=== PATIENT | male | born 1995 | race American Indian/Alaskan Native ===

== ENCOUNTER 2020-09-09 22:01 | Emergency (ER) | payer SELFPAY ==
[2020-09-09] MEDS ORDERED: IPRATROPIUM 0.02% NEBU 2.5 ML IH ONE (22:57)
[2020-09-09] MEDS ORDERED: dexAMETHasone 20 MG/5 ML VIAL IV ONE (22:57)
[2020-09-09] MEDS ORDERED: ALBUTEROL 2.5 MG/3 ML NEBU IH ONE ×2 (22:57→23:22)
[2020-09-09] MEDS ORDERED: dexAMETHasone 20 MG/5 ML VIAL IM ONE (23:01)
--- NOTE | 2020-09-09 23:10 | Emergency Department Report ---
<ZAK BILLINGS - Last Filed: 09/09/20 23:24> ED Shortness of Breath HPI - General Chief Complaint: Dyspnea/Respdistress Stated Complaint: ASTHMA - Related Data Previous Rx's Medication Instructions Recorded Last Taken Type ALBUTEROL NEB's [Proventil 0.083% 2.5 mg IH QID PRN #1 box 09/10/20 Unknown Rx NEBS] Albuterol Mdi (or & Nicu Only) 2 puff IH QID PRN #8.5 gram 09/10/20 Unknown Rx [ProAir HFA Inhaler] predniSONE [Deltasone] 40 mg PO QDAY 5 Days #10 tab 09/10/20 Unknown Rx Allergies Allergy/AdvReac Type Severity Reaction Status Date / Time No Known Allergies Allergy Verified 09/09/20 22:57 ED Past Medical Hx - Medications Home Medications: Home Medications Medication Instructions Recorded Confirmed Last Taken Type ALBUTEROL NEB's [Proventil 0.083% 2.5 mg IH QID PRN #1 box 09/10/20 Unknown Rx NEBS] Albuterol Mdi (or & Nicu Only) 2 puff IH QID PRN #8.5 gram 09/10/20 Unknown Rx [ProAir HFA Inhaler] predniSONE [Deltasone] 40 mg PO QDAY 5 Days #10 tab 09/10/20 Unknown Rx ED Medical Decision Making - Medical Decision Making I evaluated patient. I agree with treatment plan. Patient continues to have inspiratory expiratory wheezes. He also has mild work of breathing. I have ordered second continuous nebulizer therapy. ED Disposition Clinical Impression: Shortness of breath Asthma attack Qualifiers: Asthma severity: moderate Asthma persistence: unspecified Qualified Code(s): J45.901 - Unspecified asthma with (acute) exacerbation Disposition: DC- TO HOME OR SELFCARE Condition: Stable Instructions: Asthma, Adult, [id number] Additional Instructions: Please complete your prednisone as prescribed. Use your nebulizer albuterol or inhaler every 4-6 hours as needed for wheezing or shortness of breath or cough. Is very important for you to increase your fluid intake. Follow-up with your primary care provider in the next 3 to 5 days. Prescriptions: predniSONE [Deltasone] 40 mg PO QDAY 5 Days #10 tab Albuterol Mdi (or & Nicu Only) [ProAir HFA Inhaler] 2 puff IH QID PRN #8.5 gram PRN Reason: Shortness Of Breath ALBUTEROL NEB's [Proventil 0.083% NEBS] 2.5 mg IH QID PRN #1 box PRN Reason: Wheezing Referrals: [facility] [place] [Provider Group] - 3-5 Days Forms: Work/School Release Form(ED) <DANY BALBUENA - Last Filed: 09/10/20 00:21> ED Shortness of Breath HPI - General Source: patient Mode of arrival: Ambulatory Limitations: No Limitations - History of Present Illness Initial Comments: 24-year-old -Citizen Of [place] male presents to the emergency room for 1 day history of shortness of breath and wheezing. Patient states that he has asthma. He reports he has been using his nebulizer with no relief. Patient denies any fever or chills. Denies any nausea vomiting or chest pain. Reports chest tightness. Patient reports he has been hospitalized for his asthma as well as been intubated in the past. MD Complaint: shortness of breath Onset/Timin -: days(s) ED Review of Systems ROS: Stated complaint: ASTHMA Other details as noted in HPI Comment: All other systems reviewed and negative ED Past Medical Hx - Past Medical History Previous Medical History?: Yes Hx Asthma: Yes - Surgical History Past Surgical History?: No - Social History Smoking Status: Never Smoker Substance Use Type: None ED Physical Exam - General Limitations: No Limitations General appearance: alert, in no apparent distress, in distress - Head Head exam: Present: atraumatic, normocephalic - Eye Eye exam: Present: normal appearance - ENT ENT exam: Present: mucous membranes moist - Respiratory Respiratory exam: Present: wheezes, rhonchi, accessory muscle use - Cardiovascular Cardiovascular Exam: Present: regular rate, normal rhythm. Absent: systolic murmur, diastolic murmur, rubs, gallop - Back Exam Back exam: Present: normal inspection, full ROM - Neurological Exam Neurological exam: Present: alert, oriented X3, normal gait - Psychiatric Psychiatric exam: Present: normal affect, normal mood - Skin Skin exam: Present: warm, dry, intact, normal color. Absent: rash ED Course Vital Signs 09/09/20 22:54 Temperature 98.1 F Pulse Rate 96 H Respiratory 18 Rate Blood Pressure 144/85 O2 Sat by Pulse 96 Oximetry - Reevaluation(s) Reevaluation #1: 09/10/20 00:15 Patient is moving air after having a second nebulizer treatment. Patient reports he feels much better. ED Medical Decision Making - Medical Decision Making 24-year-old -Citizen Of [place] male presents to the emergency room for 1 day history of shortness of breath and wheezing. Patient states that he has asthma. He reports he has been using his nebulizer with no relief. Patient denies any fever or chills. Denies any nausea vomiting or chest pain. Reports chest tightness. Patient reports he has been hospitalized for his asthma as well as been intubated in the past. Albuterol 5 mg inhalation Atrovent 5 mg inhalation dexamethasone 10 mg IM. Critical care attestation.: If time is entered above; I have spent that time in minutes in the direct care of this critically ill patient, excluding procedure time. ED Disposition Is pt being admited?: No Does the pt Need Aspirin: No
[2020-09-10 00:33] VITALS: BP 141/81
== END 2020-09-10 00:30 | disposition home or self-care (01) ==
LOC: ED 22:01
DX: J45.909 Unspecified asthma, uncomplicated (principal); Z79.899 Other long term (current) drug therapy
CPT/HCPCS: 94640; 96372; 99283; J1100